=== PATIENT | female | born 1975 ===

== ENCOUNTER 2025-01-17 10:38 | Emergency (ER) | payer SELFPAY ==
[2025-01-17 10:44] VITALS: BP 120/86; PULSE 74; RESP 14; TEMP 36.9; O2SAT 99
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
[2025-01-17 13:04] LABS: TSH (W/Ref FT4) 6.54 uIU/mL (0.36-3.74)
[2025-01-17 13:27] LABS: FREE T4 0.92 ng/dL (0.76-1.46)
--- NOTE | 2025-01-20 07:15 | NUR.NOTE ---
Access chart to review the referral and to see who the ED provider was to send the referral messages to. Nursing Note:
== END 2025-01-17 12:59 | disposition home or self-care (01) ==
PROVIDERS: Emergency Provider Physician Assistant
DX: Z76.0 Encounter for issue of repeat prescription (principal); E03.9 Hypothyroidism, unspecified
CPT/HCPCS: 36415; 99282; 84439; 84443